=== PATIENT | male | born 1950 | race Caucasian/White ===

== ENCOUNTER → 2016-10-01 | Outpatient (CLI) | payer OTHER ==
[~2016-10-01] MED LIST: ALPR-411 PO; ASPI81TA28 PO; CHOL20005 PO; CITA20TA4; CURAMED PO; FESO8TAB PO; IBUP-1277 PO; LEVO75CA2 PO; MELA3TAB PO; PERI4TAB PO; REGADENOSON 0.4 MG/5 ML SYR ONE; SALI1SPR3 NAE; TADA20TA PO; TRAZ50TA35 PO; [UNRECOGNIZED DRUG - OTHER] PO
--- NOTE | 2016-10-01 18:23 | MYOCARDIAL PERFUSION SCAN ---
ORDERING PHYSICIAN: Dr. Harrison. PCP: Dr. Flores. TIME OF DICTATION: 17:20. PROCEDURE: 1. Myocardial perfusion study performed in multiple views/images. 2. Lexiscan pharmacologic stress test. INDICATIONS: 1. CAD. 2. Chest pain. 3. Left bundle branch block. CONSENT: Informed consent was obtained prior to procedure. ELECTROCARDIOGRAM AND VITALS: Baseline ECG demonstrated sinus rhythm with first degree AV block at 65 BPM. Left bundle branch block. Lexiscan ECG demonstrated no significant ST changes. No arrhythmia. No significant pauses. No chest pain reported. Maximum heart rate was 94 beats per minute representing 60% of the maximum predicted heart rate. Resting blood pressure was 119/76 mmHg. Maximum blood pressure was 137/85 mmHg. PROCEDURAL DETAILS: For the stress portion of the study, Lexiscan 0.4 mg was intravenously administered over 10-15 seconds followed by saline flush. This was followed by 32.8 mCi of technetium-99m Cardiolite at 9:35 a.m. on 10/01/2016. Thirty minutes following the injection, imaging of the heart was performed in multiple projections. For the rest portion of the study 11.2 mCi of technetium-99m Cardiolite was injected intravenously at 7:35 a.m. on the same day. One hour following the injection, imaging of heart was performed in the same projections. FINDINGS: Rotating raw imaging demonstrated normal heart size. There was no significant motion artifact. There was no significant lung uptake. Myocardial perfusion appeared normal without significant fixed or reversible defects to suggest infarct or ischemic changes. Ejection fraction was 52%. The septum did appear to be hypokinetic. Otherwise, wall motion appeared normal. There was no significant transient ischemic dilation. IMPRESSION: 1. Normal myocardial perfusion without significant ischemic changes. 2. Low normal left ventricular systolic function with an ejection fraction of 52%. 3. Wall motion demonstrated hypokinesis of the septum. 4. No chest pain reported. 5. Indeterminate Lexiscan ECG due to baseline left bundle branch block.
== END | disposition home or self-care (01) ==
LOC: C.NUCL 06:58
PROVIDERS: ATTEND Internal Medicine Cardiovascular Disease
DX: I25.10 Atherosclerotic heart disease of native coronary artery without angina pectoris (principal); I44.7 Left bundle-branch block, unspecified; R07.9 Chest pain, unspecified

== ENCOUNTER 2019-03-24 09:12 | Observation (INO) ==
[2019-03-24 09:55] LABS: Basophils # (auto) 0.01 K/uL (0-0.2); Basophils % (auto) 0.2 %; Eosinophils # (auto) 0.07 K/uL (0-0.5); Eosinophils % (auto) 1.3 %; Hematocrit (blood only) 41.5 % (42-52); Hemoglobin 14.4 g/dL (14.0-18.0); Immature Granulocytes # (auto) 0.02 K/uL (0.00-0.02); Immature Granulocytes % (auto) 0.4 %; Lymphocytes # (auto) 1.68 K/uL (1.2-3.4); Lymphocytes % (auto) 32.1 %; Mean Corpuscular Hgb Conc 34.7 g/dL (32-36); Mean Corpuscular Volume 89.4 fL (80-100); Mean Platelet Volume 9.4 fL (7.4-10.4); Monocytes # (auto) 0.48 K/uL (0.11-0.59); Monocytes % (auto) 9.2 %; Neutrophils # (auto) 2.97 K/uL (1.4-6.5); Neutrophils % (auto) 56.8 %; Platelet Count 162 K/uL (130-400); RDW Coefficient of Variation 13.1 % (11.5-14.5); RDW Standard Deviation 42.7 fL (36.4-46.3); Red Blood Count 4.64 M/uL (4.7-6.1); White Blood Count 5.23 K/uL (4.8-10.8)
--- NOTE | 2019-03-24 10:00 | XRay Report ---
XR chest 1V portable CLINICAL HISTORY: Atypical chest pain COMPARISON STUDY: 08/02/2016 FINDINGS: The heart remains mildly enlarged. There is no failure. There is no lobar consolidation. Th ere are no pleural effusions. There are minor basilar atelectatic changes.[ IMPRESSION: No active disease in the chest. Electronically signed by: Karson Belle M.D. 03/24/2019 9:59 AM
[2019-03-24 10:05] LABS: Partial Thromboplastin Ratio 0.9; Partial Thromboplastin Time 24.8 Seconds (21.0-31.0); Prothrombin Time 10.6 Seconds (9.0-12.0)
[2019-03-24 10:06] LABS: Albumin Level 3.8 gm/dl (3.4-5.0); BUN Creatinine Ratio 21.1 (10-20); Calcium 9.4 mg/dl (8.5-10.1); Creatinine Clr Calc Pharmacy 76.4 ml/min; Est GFR (African American) 86.7; Est GFR (Non-African American) 74.8; Potassium 4.3 mmol/L (3.5-5.1)
[2019-03-24 10:09] LABS: Albumin Globulin Ratio 1.1 (0.9-2); Bilirubin,Total 0.5 mg/dl (0.2-1); Globulin 3.5 gm/dl (2.5-4.0); Total Protein 7.3 gm/dl (6.4-8.2)
--- NOTE | 2019-03-24 11:17 | History & Physical Report ---
Date of Service March 24, 2019 Assessment & Plan (1) Exertional chest pain: - Admit to tele for observation for r/o - Trend cardiac biomarkers, initial set was negative - EKG reviewed as above - Check 2 D echo - If negative enzymes can consider a stress test tomorrow morning. - PT/OT consulted - Consult cardiology, Dr. Harrison, follows with him as an outpatient - Lipid panel, A1c with a.m. labs as the patient has already eaten breakfast. - Check x-ray of left shoulder to rule out musculoskeletal issue, patient reports he does take ibuprofen 200 mg QID routinely at home for muscular pain. May consider MRI after xray pending findings. (2) CAD (coronary artery disease): -Continue on full dose aspirin every morning, continue peindopril erbumine 4 mg daily, pravastatin 20 HS (3) Left bundle branch block (LBBB): - appears to be chronic on EKG, as reviewed (4) Hyperlipidemia: - Statin therapy as above (5) Hypothyroidism: -Continue levothyroxine 75 mcg daily (6) H/O Anahi thyroiditis: - hx of such (7) History of prostate surgery: (8) Chronic interstitial cystitis: - Patient reports that this is a chronic issue ongoing for several months, he has recently seen Dr. Nieves as an outpatient for superior hypogastric pl exus block which he reports did not improve symptoms. - Will check UA to r/o infectious process (9) DVT prophylaxis: - teds, aspirin 325 mg daily, ambulatory History of Present Illness Primary Care Provider: Cullen Flores This is a 68-year-old male with past medical history of CAD, HTN, HLD, chronic LBBB, obesity with BMI of 30.6, BPH, interstitial cystitis, hypothyroidism, Anahi's thyroiditis, who presents to the ER with chest pain times last 3 weeks. Patient notes that this has been waxing and waning, he does not specifically note if this is worse on exertion. He feels this also in his left shoulder but does not radiate to any other location. Patient rates his pain as mild currently. Patient denies any history of drinking alcohol routinely or smoking. He does exercise routinely, 3-4 times per week lifts weights, and leads an active lifestyle. The patient underwent cardiac cath at [facility] in 2005 where nonobstructive CAD was found, it sounds like there was no PCI or stents placed during that timeframe. He routinely follows with Dr. Harrison with cardiology as an outpatient. Patient takes all of his medications routinely including a baby aspirin daily. Pertinent Family Hx: Brother, Jessica, age 67, recently diagnosed with CAD and underwent open heart surgery 1 month ago Father, at age 69 from CAD and [place] after a hip fracture repair Mother, at age 67 from CHF and complications Will admit to telemetry for observation initial troponin is negative, EKG is negative except for chronic LBBB. Labs are otherwise WNL. Allergies Allergy/AdvReac Type Severity Reaction Status Date / Time tamsulosin Allergy Intermediate WEAKNESS Verified 03/24/19 10:47 strawberry Allergy Unknown STRAWBERRIES Verified 03/24/19 10:47 GIVE RASH cephalexin AdvReac Intermediate MUSCLE Verified 03/24/19 10:47 WEAKNESS ketamine AdvReac Unknown BURNING ON Verified 03/24/19 10:47 URINATION trospium AdvReac Unknown MUSCLE Verified 03/24/19 10:47 WEAKNESS Home Medications Home Medications Medication Instructions Recorded Confirmed Type ascorbic acid (vitamin C) 250 mg 250 mg PO QAM 10/30/18 03/24/19 History tablet aspirin 81 mg tablet,delayed 81 mg PO HS 10/30/18 03/24/19 History release citalopram 20 mg tablet 20 mg PO QAM 10/30/18 03/24/19 History cyclobenzaprine 10 mg tablet 10 mg PO HS PRN 10/30/18 03/24/19 History ibuprofen 200 mg tablet 200 mg PO QID PRN 10/30/18 03/24/19 History levothyroxine 75 mcg capsule 75 mcg PO DAILYBB 10/30/18 03/24/19 History lorazepam 0.5 mg tablet 0.5 mg PO TID PRN tab 10/30/18 03/24/19 History melatonin 3 mg tablet 3 mg PO HS PRN 10/30/18 03/24/19 History perindopril erbumine 4 mg tablet 4 mg PO QAM 10/30/18 03/24/19 History tadalafil 20 mg tablet 20 mg PO DAILY PRN 10/30/18 03/24/19 History trazodone 50 mg tablet 50 mg PO HS 10/30/18 03/24/19 History pravastatin 20 mg PO HS 03/24/19 03/24/19 History vitamin D3-vitamin K2 (MK4) 1 tab PO QAM 03/24/19 03/24/19 History Past Med/Surg History Medical History Hypercholesterolemia (Chronic) Left bundle branch block (LBBB) (Chronic) Hyperlipidemia (Chronic) H/O Anahi thyroiditis (Chronic) CAD (coronary artery disease) (Chronic) Hypothyroidism (Chronic) Chronic interstitial cystitis (Chronic 01/30/13) Surgical History History of prostate surgery (Chronic) H/O Achilles tendon repair (Chronic) History of herniorrhaphy (Chronic) S/P TKR (total knee replacement) (Chronic) Family History Other Coronary heart disease Heart disease Hypertension Social History Preferred Language: Egyptian Communication Ability: Effective Celebrity Manager Required: No Beliefs That Will Affect Care: None Current Living Situation: Spouse Other Information That Helps Us Care for You: No Feels Safe at Home: Yes Safety Concerns: Feels Safe At This Time Smoking Status: Never smoker Do You Dip or Chew Tobacco: No ; Second Hand Exposure: No ; Tobacco Cessation Education Requested by Patient: No Hx Alcohol Use: Yes Alcohol type: wine Hx Substance Use: No Review of Systems Review of Systems: Constitutional: No fever, sweats or chills Eyes: No diplopia, no worsening or blurred vision ENT: normal hearing, no trouble swallowing Respiratory: No cough, sputum, dyspnea at rest or on exertion Cardiovascular: + mild chest pain, no tightness or palpitations Abdomen: No pain, nausea, vomiting, diarrhea or constipation Musculoskeletal: + left shoulder pain which is mild, does not radiate, otherwise No joint pain, calf pain, swelling Neurologic: No weakness, numbness/tingling, or balance problems Psychiatric: No anxiety or depression Skin: No rash or itch Physical Exam Physical Exam: General: awake, alert, no apparent distress Head: Normocephalic, atraumatic ENT: PERRL, EOMI, no pharyngeal exudate, mucous membranes moist Chest: Clear to auscultation, on room air, no adventitious breath sounds Cardiac: Regular rate and rhythm, no murmur, no JVD, normal peripheral pulses, good capillary refill Abdominal: NABS x 4 quadrants, soft, nontender to palpation, no rebound, guarding or tenderness Extremities: Normal inspection, no peripheral edema or erythema, calfs nontender to palpation Psych: Normal mood and affect Neuro: AAO x 3, strength intact bilaterally and related 5/5, no motor deficits, speech is clear, no peripheral sensory deficits Results & Data Vital Signs (Past 12 Hours) Vital Signs Temp Pulse Resp BP Pulse Ox 03/24/19 10:30 53 L 18 95 03/24/19 10:28 53 L 18 95 03/24/19 10:10 55 L 16 98 03/24/19 10:00 56 L 14 129/78 94 03/24/19 09:50 56 L 18 97 03/24/19 09:43 67 95 03/24/19 09:40 60 16 97 03/24/19 09:34 56 L 14 96 03/24/19 09:32 59 L 12 122/73 96 03/24/19 09:14 36.7 C 60 18 135/80 94 Diagnostic Findings XR chest 1V portable CLINICAL HISTORY: Atypical chest pain COMPARISON STUDY: 08/02/2016 FINDINGS: The heart remains mildly enlarged. There is no failure. There is no lobar consolidation. There are no pleural effusions. There are minor basilar ate lectatic changes.[ IMPRESSION: No active disease in the chest. ECG Additional Comments: 24-MAR-2019 09:15:29 [facility]-EDSTAT ROUTINE RETRIEVAL Sinus bradycardia with 1st degree A-V block Left bundle branch block Abnormal ECG When compared with ECG of 02-AUG-2016 21:42, No significant change was found 25mm/s 10mm/mV 150Hz 9.0.8 12SL 241 ASHLYN: 11 Unconfirmed Vent. rate 59 BPM IN interval 232 ms QRS duration 166 ms QT/QTc 464/459 ms P-R-T axes 49 -10 56 Code Status & VTE Plan Code Status Full Code-discussed with the patient and his at bedside. Supervising Physician Co-Signing Physician Notes I have seen the patient with Natalie Cat and agree with exam , assessment and plan. PG Care Time/CCT Total # of Minutes Spent Total Time Spent with Patient: Total time spent is greater than 50% in coordination of care (as documented) at patient's floor/unit and/or counseling patient: (1) CAD (coronary artery disease) Associated angina: angina presence unspecified Coronary Disease-Associated Artery/Lesion type: unspecified vessel or lesion type [place] vs. transplanted heart: [place] heart Qualified Code(s): I25.10 - Atherosclerotic heart disease of [place] coronary artery without angina pectoris
[2019-03-24] MEDS ORDERED: ACETAMINOPHEN 325 MG TAB PO PRN (13:24)
[2019-03-24] MEDS ORDERED: ONDANSETRON INJ 2 MG/ML 2 ML VIAL IV PRN (13:24)
[2019-03-24] MEDS ORDERED: CYCLOBENZAPRINE HCL 10 MG TAB PO PRN (13:24)
[2019-03-24 13:58] LABS: Appearance Urine Clear (Clear); Bilirubin Urine Negative (Negative); Blood Urine Negative (Negative); Color Urine Yellow; Glucose Urine UA Negative (Negative); Ketones Urine Negative (Negative); Leukocyte Esterase Urine Negative (Negative); Nitrite Urine Negative (Negative); Protein Urine Negative (Negative); Urobilinogen Urine Negative (Negative)
[2019-03-24] MEDS ORDERED: PNEUMOCOCCAL POLYSACCHARIDES 25 MCG/0.5 ML VIAL/SYR IM ONE (14:00)
[2019-03-24] MEDS ORDERED: PNEUMOCOCCAL ADMINISTRATION CHARGE ONE (14:00)
--- NOTE | 2019-03-24 14:42 | Emergency Department Note ---
Entered by Marla Laurent acting as a scribe for Kishor Shepard MD History of Present Illness General Chief complaint: Chest Pain Stated complaint: CHEST PAIN, SHOULDER PAIN Source: patient History of Present Illness Provider complaint: Chest pain Onset (ago): week(s) 3 Location: chest Radiation: other (shoulder and arm) Pain Consistency: + intermittent Maximum Pain Intensity: 3 Quality: + constant Associated symptoms: + chest pain (left upper ) and + other (Positive: shoulder pain, arm pain. Negative: abdominal pain, leg swelling, leg pain, lightheadedness. ); no cough, no fever/chills and no nausea/vomiting The patient is a 68 year old male with past medical history of LBBB, CAD, chronic interstitial cystitis, who presents to the ED with complaints of intermittent left upper chest pain that started 3 weeks ago. The patient reports his pain radiates to his shoulder and armpit. He notes he is sore. The patient additionally notes he walked on the stair stepper for 30 minutes yesterday and had chest discomfort. He reports his pain is worsened with exertion. The patient notes he has history of bundle block and had catheterization in 2007. He states they found at least one 60% artery blockage. The patient denies shortness of breath, diaphoresis, nausea, vomiting, abdominal pain, leg swelling, leg pain, fever, cough, or lightheadedness. Home Medications Home Medications Medication Instructions Recorded Confirmed Type ascorbic acid (vitamin C) 250 mg 250 mg PO QAM 10/30/18 03/24/19 History tablet aspirin 81 mg tablet,delayed 81 mg PO HS 10/30/18 03/24/19 History release citalopram 20 mg tablet 20 mg PO QAM 10/30/18 03/24/19 History cyclobenzaprine 10 mg tablet 10 mg PO HS PRN 10/30/18 03/24/19 History ibuprofen 200 mg tablet 200 mg PO QID PRN 10/30/18 03/24/19 History levothyroxine 75 mcg capsule 75 mcg PO DAILYBB 10/30/18 03/24/19 History lorazepam 0.5 mg tablet 0.5 mg PO TID PRN tab 10/30/18 03/24/19 History melatonin 3 mg tablet 3 mg PO HS PRN 10/30/18 03/24/19 History perindopril erbumine 4 mg tablet 4 mg PO QAM 10/30/18 03/24/19 History tadalafil 20 mg tablet 20 mg PO DAILY PRN 10/30/18 03/24/19 History trazodone 50 mg tablet 50 mg PO HS 10/30/18 03/24/19 History pravastatin 20 mg PO HS 03/24/19 03/24/19 History vitamin D3-vitamin K2 (MK4) 1 tab PO QAM 03/24/19 03/24/19 History Allergies Allergy/AdvReac Type Severity Reaction Status Date / Time tamsulosin Allergy Intermediate WEAKNESS Verified 03/24/19 10:47 strawberry Allergy Unknown STRAWBERRIES Verified 03/24/19 10:47 GIVE RASH cephalexin AdvReac Intermediate MUSCLE Verified 03/24/19 10:47 WEAKNESS ketamine AdvReac Unknown BURNING ON Verified 03/24/19 10:47 URINATION trospium AdvReac Unknown MUSCLE Verified 03/24/19 10:47 WEAKNESS Past Med/Surg History Medical History Hypercholesterolemia (Chronic) Left bundle branch block (LBBB) (Chronic) Hyperlipidemia (Chronic) H/O Anahi thyroiditis (Chronic) CAD (coronary artery disease) (Chronic) Hypothyroidism (Chronic) Chronic interstitial cystitis (Chronic 01/30/13) Surgical History History of prostate surgery (Chronic) H/O Achilles tendon repair (Chronic) History of herniorrhaphy (Chronic) S/P TKR (total knee replacement) (Chronic) Family History Other Coronary heart disease Heart disease Hypertension Social History Preferred Language: Hungarian Communication Ability: Effective Cage Operator Required: No Beliefs That Will Affect Care: None Current Living Situation: Spouse Other Information That Helps Us Care for You: No Feels Safe at Home: Yes Safety Concerns: Feels Safe At This Time Smoking Status: Never smoker Do You Dip or Chew Tobacco: No ; Second Hand Exposure: No ; Tobacco Cessation Education Requested by Patient: No Hx Alcohol Use: Yes Alcohol type: wine Hx Substance Use: No Review of Systems See HPI for pertinent positives & negatives. and A total of 10 systems reviewed and were otherwise negative Physical Exam Vital Signs Vital Signs - 24 hr 03/24/19 09:14 03/24/19 09:32 03/24/19 09:34 Temperature 36.7 C Temperature Source Oral Sepsis Recent Fever Within 48 Hours No Sepsis New/Unexplained Change in Mental Status No Sepsis Action Taken by Nursing No Action Required Pulse Rate 60 59 L 56 L Pulse Rate from SpO2 Sensor 59 L 57 L Pulse Rhythm Respiratory Rate 18 12 14 Respiratory Effort / Characteristics Non-Labored Spontaneous Respiratory Depth Normal Blood Pressure 135/80 122/73 Blood Pressure Mean 98 89 Blood Pressure Position Sitting Pulse Oximetry 94 96 96 Oxygen Delivery Method Room Air 03/24/19 09:40 03/24/19 09:43 03/24/19 09:50 Temperature Temperature Source Sepsis Recent Fever Within 48 Hours Sepsis New/Unexplained Change in Mental Status Sepsis Action Taken by Nursing Pulse Rate 60 67 56 L Pulse Rate from SpO2 Sensor 60 57 L Pulse Rhythm Regular Respiratory Rate 16 18 Respiratory Effort / Characteristics Respiratory Depth Blood Pressure Blood Pressure Mean Blood Pressure Position Pulse Oximetry 97 95 97 Oxygen Delivery Method Room Air 03/24/19 10:00 03/24/19 10:10 03/24/19 10:28 Temperature Temperature Source Sepsis Recent Fever Within 48 Hours Sepsis New/Unexplained Change in Mental Status Sepsis Action Taken by Nursing Pulse Rate 56 L 55 L 53 L Pulse Rate from SpO2 Sensor 55 L 56 L 54 L Pulse Rhythm Respiratory Rate 14 16 18 Respiratory Effort / Characteristics Respiratory Depth Blood Pressure 129/78 Blood Pressure Mean 95 Blood Pressure Position Pulse Oximetry 94 98 95 Oxygen Delivery Method 03/24/19 10:30 03/24/19 10:32 03/24/19 10:40 Temperature Temperature Source Sepsis Recent Fever Within 48 Hours Sepsis New/Unexplained Change in Mental Status Sepsis Action Taken by Nursing Pulse Rate 53 L 55 L 56 L Pulse Rate from SpO2 Sensor 53 L 56 L 55 L Pulse Rhythm Respiratory Rate 18 14 14 Respiratory Effort / Characteristics Respiratory Depth Blood Pressure Blood Pressure Mean 90 Blood Pressure Position Pulse Oximetry 95 96 95 Oxygen Delivery Method 03/24/19 10:50 03/24/19 11:00 03/24/19 11:18 Temperature Temperature Source Sepsis Recent Fever Within 48 Hours Sepsis New/Unexplained Change in Mental Status Sepsis Action Taken by Nursing Pulse Rate 58 L 54 L 59 L Pulse Rate from SpO2 Sensor 58 L 54 L Pulse Rhythm Respiratory Rate 16 15 9 L Respiratory Effort / Characteristics Respiratory Depth Blood Pressure 131/77 Blood Pressure Mean 95 Blood Pressure Position Pulse Oximetry 96 96 Oxygen Delivery Method 03/24/19 11:20 Temperature Temperature Source Sepsis Recent Fever Within 48 Hours Sepsis New/Unexplained Change in Mental Status Sepsis Action Taken by Nursing Pulse Rate 52 L Pulse Rate from SpO2 Sensor 51 L Pulse Rhythm Respiratory Rate 20 Respiratory Effort / Characteristics Respiratory Depth Blood Pressure Blood Pressure Mean Blood Pressure Position Pulse Oximetry 97 Oxygen Delivery Method Constitutional: Vital signs reviewed. Eyes: Pupils are equal round reactive to light. Conjunctiva are noninjected. ENT: Pharynx is clear without erythema or exudate. Mucous membranes are moist. Neck supple without meningeal signs. Respiratory: Clear to auscultation bilaterally. Breath sounds are equal bilaterally. Cardiovascular: Regular rate and rhythm. No rubs or gallops. GI: Soft, nondistended and nontender. Bowel sounds are present. Musculoskeletal: No peripheral edema. No lower extremity tenderness. Integumentary: No cyanosis. Neurological: The patient is awake and alert. No focal deficits. Psychiatric: Normal affect. Course 0938: The patient was evaluated in room B4B. A complete history and physical exam was performed. 1106: I checked on the patient. His chest pain has now resolved. I recommended hospitalization. 1112: I discussed the patient's case with Dr. Leal, [facility] Hospitalist. She will evaluate the patient for further management. Consultations Consultation #1: I discussed the patient's case with Dr. Leal, [facility] Hospitalist. She will evaluate the patient for further management. Time: 11:12 Administered Medications Medical Decision Making Differential Diagnosis Differential Diagnosis: Unstable angina, RI, pleurisy, pneumonia, GERD Medical Records Attestation: I reviewed the patient's medical records. (The patient was seen by pain management in January for intersitital cystitis ) Home Medications Current Medication List: was personally reviewed by me Laboratory Data Attestation: I reviewed the patient's lab results. Result diagrams: 03/24/19 09:33 03/24/19 09:33 Lab Results 03/24/19 03/24/19 03/24/19 Range/Units 09:33 09:33 09:33 WBC 5.23 (4.8-10.8) K/uL RBC 4.64 L (4.7-6.1) M/uL Hgb 14.4 (14.0-18.0) g/dL Hct 41.5 L (42-52) % MCV 89.4 (80-100) fL MCH 31.0 (25-34) pg MCHC 34.7 (32-36) g/dL RDW Std Deviation 42.7 (36.4-46.3) fL RDW Coeff of Maria Esther 13.1 (11.5-14.5) % Plt Count 162 (130-400) K/uL MPV 9.4 (7.4-10.4) fL Immature Gran % (Auto) 0.4 % Neut % (Auto) 56.8 % Lymph % (Auto) 32.1 % [place] % (Auto) 9.2 % Eos % (Auto) 1.3 % Baso % (Auto) 0.2 % Immature Gran # (Auto) 0.02 (0.00-0.02) K/uL Neut # (Auto) 2.97 (1.4-6.5) K/uL Lymph # (Auto) 1.68 (1.2-3.4) K/uL [place] # (Auto) 0.48 (0.11-0.59) K/uL Eos # (Auto) 0.07 (0-0.5) K/uL Baso # (Auto) 0.01 (0-0.2) K/uL PT 10.6 (9.0-12.0) Seconds INR 1.0 (0.9-1.1) APTT 24.8 (21.0-31.0) Seconds PTT Ratio 0.9 Sodium 143 (136-145) mmol/L Potassium 4.3 (3.5-5.1) mmol/L Chloride 110 H (98-107) mmol/L Carbon Dioxide 26 (21-32) mmol/L Anion Gap 6.0 (3-11) BUN 22 H (7-18) mg/dl Creatinine 1.03 (0.6-1.4) mg/dl Est Cr Clr Drug Dosing 76.4 ml/min Est GFR ( Amer) 86.7 Est GFR (Non-Af Amer) 74.8 BUN/Creatinine Ratio 21.1 H (10-20) Glucose 98 (70-99) mg/dl Calcium 9.4 (8.5-10.1) mg/dl Total Bilirubin 0.5 (0.2-1) mg/dl AST 20 (15-37) U/L ALT 33 (12-78) U/L Alkaline Phosphatase 54 (45-117) U/L POC Troponin I (0-0.045) ng/ml Total Protein 7.3 (6.4-8.2) gm/dl Albumin 3.8 (3.4-5.0) gm/dl Globulin 3.5 (2.5-4.0) gm/dl Albumin/Globulin Ratio 1.1 (0.9-2) Lipase 157 (73-393) U/L 03/24/19 Range/Units 09:48 WBC (4.8-10.8) K/uL RBC (4.7-6.1) M/uL Hgb (14.0-18.0) g/dL Hct (42-52) % MCV (80-100) fL MCH (25-34) pg MCHC (32-36) g/dL RDW Std Deviation (36.4-46.3) fL RDW Coeff of Maria Esther (11.5-14.5) % Plt Count (130-400) K/uL MPV (7.4-10.4) fL Immature Gran % (Auto) % Neut % (Auto) % Lymph % (Auto) % [place] % (Auto) % Eos % (Auto) % Baso % (Auto) % Immature Gran # (Auto) (0.00-0.02) K/uL Neut # (Auto) (1.4-6.5) K/uL Lymph # (Auto) (1.2-3.4) K/uL [place] # (Auto) (0.11-0.59) K/uL Eos # (Auto) (0-0.5) K/uL Baso # (Auto) (0-0.2) K/uL PT (9.0-12.0) Seconds INR (0.9-1.1) APTT (21.0-31.0) Seconds PTT Ratio Sodium (136-145) mmol/L Potassium (3.5-5.1) mmol/L Chloride (98-107) mmol/L Carbon Dioxide (21-32) mmol/L Anion Gap (3-11) BUN (7-18) mg/dl Creatinine (0.6-1.4) mg/dl Est Cr Clr Drug Dosing ml/min Est GFR ( Amer) Est GFR (Non-Af Amer) BUN/Creatinine Ratio (10-20) Glucose (70-99) mg/dl Calcium (8.5-10.1) mg/dl Total Bilirubin (0.2-1) mg/dl AST (15-37) U/L ALT (12-78) U/L Alkaline Phosphatase (45-117) U/L POC Troponin I < 0.03 (0-0.045) ng/ml Total Protein (6.4-8.2) gm/dl Albumin (3.4-5.0) gm/dl Globulin (2.5-4.0) gm/dl Albumin/Globulin Ratio (0.9-2) Lipase (73-393) U/L Imaging Data Radiologist's Impression: Radiology results as stated below per my review and the radiologist's interpretation: XR chest 1V portable CLINICAL HISTORY: Atypical chest pain COMPARISON STUDY: 08/02/2016 FINDINGS: The heart remains mildly enlarged. There is no failure. There is no lobar consolidation. There are no pleural effusions. There are minor basilar atelectatic changes.[ IMPRESSION: No active disease in the chest. Electronically signed by: Karson Belle M.D. 03/24/2019 9:59 AM ECG Data Attestation: I personally reviewed and interpreted this ECG as follows: Indication: chest pain Rate (beats per minute): 59 Rhythm: sinus bradycardia Findings: + 1st degree AV block and + LBBB; no PVC MDM Narrative I did evaluate the patient as noted above. Patient is presenting with exertional chest pain intermittently for the past 3 weeks. He does have a prior history of cardiac catheterization which showed at least one 60% blockage in his coronary vessels according to his . He currently does not have any chest discomfort. IV access was established. The patient was placed on a continuous coach. I did order and personally review the patient's 12-lead EKG as described above. He has an old left bundle branch block and no acute ischemic changes. I did order and personally reviewed the images of the patient's chest x-ray as described above. Chest x-ray is unremarkable. I did order and review the patient's blood work as noted in the electronic medical record. Troponin is negative. Other labs are unremarkable. I did reassess patient. I did discuss the test results with him. I did recommend hospitalization for further care and evaluation. I did discuss the case with the hospitalist and keycase assembler. Impression & Plan Exertional chest pain, CAD (coronary artery disease), Left bundle branch block (LBBB), First degree atrioventricular block Discharge Plan Visit Data *Final* Discharge Date/Time: 03/24/19 12:31 Chief Complaint: Chest Pain Stated Complaint: CHEST PAIN, SHOULDER PAIN ED Provider: Kishor Shepard Discharge Problem: Exertional chest pain, CAD (coronary artery disease), Left bundle branch block (LBBB), First degree atrioventricular block Patient Disposition: Admitted As Inpatient Discharge Instructions Interventions: ED Discharge Assessment Last Done: 03/24/19 12:31 The parisibe's documentation has been prepared under my direction and personally reviewed by me in its entirety. I confirm that the note above accurately reflects all work, treatment, procedures, and medical decision making performed by me.
--- NOTE | 2019-03-24 15:01 | XRay Report ---
LEFT SHOULDER 3 VIEWS HISTORY: Left shoulder pain, repetative injury with weights COMPARISON: None. FINDINGS: There is no fracture or dislocation. Soft tissues are unremarkable. Left clavicle is intact . The heart is enlarged. Mild central pulmonary vascular congestion. Moderate AC joint arthrosis. IMPRESSION: 1. No fracture or dislocation within the left shoulder. 2. Moderate AC joint arthrosis. 3. Cardiomegaly with mild pulmonary vascular congestion. Electronically signed by: Collin Moreno M.D. 03/24/2019 2:59 PM
[2019-03-24] MEDS: LORazepam 0.5 MG TAB PO PRN ×2 (15:34→22:04)
--- NOTE | 2019-03-24 17:10 | Cardiology Consultation ---
Date of Consultation March 24, 2019 Assessment & Plan (1) Exertional chest pain: Chest pain has some atypical component such as left lateral location, possible reproducible component, and also has not been occurring with all strenuous activities. Noninvasive ischemic evaluation recommended at this time. Serial troponin levels. Thus far, no objective findings to suggest myocardial infarction. Myocardial perfusion study ordered. (2) CAD (coronary artery disease): Has reported mild nonobstructive CAD. Continue aspirin 81 mg daily. Continue statin therapy. Noninvasive ischemic evaluation as above. (3) Hyperlipidemia: He has not been able to tolerate Lipitor, Crestor, and Zetia in the past due to elevated transaminase levels. He is tolerating pravastatin. Continue current medication. (4) Left bundle branch block (LBBB): Chronic. Because of left bundle-branch block, myocardial perfusion study was ordered as the noninvasive ischemic evaluation modality. Disposition: Cardiology will continue to follow. 45 minutes spent, with greater than 50% of that time spent counseling patient and coordinating care. History of Present Illness Reason for Consultation: chest pain Requesting Physician: Aaron Cat Attending Physician: Bubba Leal MD History of Present Illness Mr. Earl is a very pleasant 68-year-old gentleman with history significant for nonobstructive CAD, dyslipidemia, and left bundle-branch block. He had a cardiac catheterization in 2005 following an abnormal stress test in [place]. He was told that no intervention was necessary at that time. He was being followed on an annual basis for nonobstructive CAD. He also has chronic left bundle-branch block. He has had the following studies/procedures: 1. Cardiac catheterization 2005: Records have been unavailable upon request. 2. Nuclear stress 10/01/2016: Negative for ischemia. EF 52%. 3. Echo 09/03/2017: Top-normal LV size with low-normal systolic function. EF 50-55%. No definite wall motion abnormalities. Septal motion consistent with bundle-branch block. Mild LVH. Type 2 diastolic dysfunction, pseudo normalized pattern. No significant valvular abnormalities. For the past 3 weeks or so he has had intermittent left-sided chest pain. The left sided chest pain is lateral left chest pain, extending into the axilla at times. He describes it as a pressure. It typically occurs with exertion but on rare occasion has occurred at rest while sitting or laying supine. Yesterday it occurred while using a stepper, 15 minutes into his usual exercise. He was able to complete his 30 minutes and it resolved quickly with rest. There was no associated shortness of breath. He does have left shoulder pain at times but it is difficult to know if the left shoulder pain is associated with the chest pressure. There is no other radiation of the pain. There is no other associated symptoms. He has been more fatigued recently over the past few weeks. He has been able to exert himself more vigorously at times as well without experiencing this chest discomfort, such as using a push mower. He denies syncope, near-syncope, palpitations, edema, melena, hematochezia, hematuria, or other bleeding. He continues to exercise 30-40 minutes per day, 5 days per week. He is currently chest pain-free. Review of systems: As above. Review of systems otherwise negative/unremarkable. Social history: Denies tobacco, alcohol, or drug abuse. He is and lives with his . Three children. His son is allergy and immunology fellow, and his son is to a back joiner in [place]. Another son lives in [place], working for [employer]. He has a daughter who is a teacher in [place]. He has grandchildren. 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 He is unaccompanied. Family history: Father had [place] following hip replacement in his 60s. Mother had CAD diagnosed in her upper 60s. Brother had CABG at the age of 76. Allergies Allergy/AdvReac Type Severity Reaction Status Date / Time tamsulosin Allergy Intermediate WEAKNESS Verified 03/24/19 10:47 strawberry Allergy Unknown STRAWBERRIES Verified 03/24/19 10:47 GIVE RASH cephalexin AdvReac Intermediate MUSCLE Verified 03/24/19 10:47 WEAKNESS ketamine AdvReac Unknown BURNING ON Verified 03/24/19 10:47 URINATION trospium AdvReac Unknown MUSCLE Verified 03/24/19 10:47 WEAKNESS Home Medications Home Medications Medication Instructions Recorded Confirmed Type ascorbic acid (vitamin C) 250 mg 250 mg PO QAM 10/30/18 03/24/19 History tablet aspirin 81 mg tablet,delayed 81 mg PO HS 10/30/18 03/24/19 History release citalopram 20 mg tablet 20 mg PO QAM 10/30/18 03/24/19 History cyclobenzaprine 10 mg tablet 10 mg PO HS PRN 10/30/18 03/24/19 History ibuprofen 200 mg tablet 200 mg PO QID PRN 10/30/18 03/24/19 History levothyroxine 75 mcg capsule 75 mcg PO DAILYBB 10/30/18 03/24/19 History lorazepam 0.5 mg tablet 0.5 mg PO TID PRN tab 10/30/18 03/24/19 History melatonin 3 mg tablet 3 mg PO HS PRN 10/30/18 03/24/19 History perindopril erbumine 4 mg tablet 4 mg PO QAM 10/30/18 03/24/19 History tadalafil 20 mg tablet 20 mg PO DAILY PRN 10/30/18 03/24/19 History trazodone 50 mg tablet 50 mg PO HS 10/30/18 03/24/19 History pravastatin 20 mg PO HS 03/24/19 03/24/19 History vitamin D3-vitamin K2 (MK4) 1 tab PO QAM 03/24/19 03/24/19 History Patient History Medical History Hypercholesterolemia (Chronic) Left bundle branch block (LBBB) (Chronic) Hyperlipidemia (Chronic) H/O [place] thyroiditis (Chronic) CAD (coronary artery disease) (Chronic) Hypothyroidism (Chronic) Chronic interstitial cystitis (Chronic 01/30/13) Surgical History History of prostate surgery (Chronic) H/O Achilles tendon repair (Chronic) History of herniorrhaphy (Chronic) S/P TKR (total knee replacement) (Chronic) Family History Other Coronary heart disease Heart disease Hypertension Social History Preferred Language: Armenian Communication Ability: Effective Lining 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 Alert and oriented. HEENT: Anicteric sclera. Neck: No JVD. No bruits. Normal carotid upstrokes bilaterally. Cardiac: PMI was nondisplaced. No ventricular heave. Regular. Normal S1-S2. No murmurs, rubs, or gallops. Pulmonary: Clear to auscultation bilaterally without wheezes, rales, or rhonchi. Abdomen: Soft, nontender, nondistended, with normoactive bowel sounds. No bruits noted. Extremities: 2+ radial pulses bilaterally. 2+ posterior tibialis pulses bilaterally. No edema or cyanosis. Psychiatric: Affect appears appropriate. Chest: Mild tenderness to palpation along the left lateral chest wall, similar to his chest pain noted above. Results & Data Vital Signs (Past 12 Hours) Vital Signs Temp Pulse Pulse Resp BP BP Pulse Ox 03/24/19 15:58 36.5 C 61 19 111/70 94 03/24/19 13:37 69 03/24/19 13:17 36.4 C L 51 L 20 155/82 H 97 03/24/19 12:20 53 L 22 98 03/24/19 12:10 51 L 13 96 03/24/19 12:00 52 L 12 135/83 96 03/24/19 11:50 51 L 11 L 97 03/24/19 11:40 50 L 14 98 03/24/19 11:30 54 L 17 122/105 H 97 03/24/19 11:20 52 L 20 97 03/24/19 11:18 59 L 9 L 03/24/19 11:00 54 L 15 131/77 96 03/24/19 10:50 58 L 16 96 03/24/19 10:40 56 L 14 95 03/24/19 10:32 55 L 14 96 03/24/19 10:30 53 L 18 95 03/24/19 10:28 53 L 18 95 03/24/19 10:10 55 L 16 98 03/24/19 10:00 56 L 14 129/78 94 03/24/19 09:50 56 L 18 97 03/24/19 09:43 67 95 03/24/19 09:40 60 16 97 03/24/19 09:34 56 L 14 96 03/24/19 09:32 59 L 12 122/73 96 03/24/19 09:14 36.7 C 60 18 135/80 94 Laboratory Results Laboratory Results - last 24 hr 03/24/19 03/24/19 03/24/19 09:33 09:33 09:33 WBC 5.23 RBC 4.64 L Hgb 14.4 Hct 41.5 L MCV 89.4 MCH 31.0 MCHC 34.7 RDW Std Deviation 42.7 RDW Coeff of Maria [place] 13.1 Plt Count 162 MPV 9.4 Immature Gran % (Auto) 0.4 Neut % (Auto) 56.8 Lymph % (Auto) 32.1 [place] % (Auto) 9.2 Eos % (Auto) 1.3 Baso % (Auto) 0.2 Immature Gran # (Auto) 0.02 Neut # (Auto) 2.97 Lymph # (Auto) 1.68 [place] # (Auto) 0.48 Eos # (Auto) 0.07 Baso # (Auto) 0.01 PT 10.6 INR 1.0 APTT 24.8 PTT Ratio 0.9 Sodium 143 Potassium 4.3 Chloride 110 H Carbon Dioxide 26 Anion Gap 6.0 BUN 22 H Creatinine 1.03 Est Cr Clr Drug Dosing 76.4 Est GFR ( Amer) 86.7 Est GFR (Non-Af Amer) 74.8 BUN/Creatinine Ratio 21.1 H Glucose 98 Calcium 9.4 Total Bilirubin 0.5 AST 20 ALT 33 Alkaline Phosphatase 54 POC Troponin I Troponin I Total Protein 7.3 Albumin 3.8 Globulin 3.5 Albumin/Globulin Ratio 1.1 Lipase 157 Urine Color Urine Appearance Urine pH Ur Specific [place] Urine Protein Urine Glucose (UA) Urine Ketones Urine Blood Urine Nitrite Urine Bilirubin Urine Urobilinogen Ur Leukocyte Esterase 03/24/19 03/24/19 03/24/19 09:48 13:27 15:29 WBC RBC Hgb Hct MCV MCH MCHC RDW Std Deviation RDW Coeff of [place] Plt Count MPV Immature Gran % (Auto) Neut % (Auto) Lymph % (Auto) [place] % (Auto) Eos % (Auto) Baso % (Auto) Immature Gran # (Auto) Neut # (Auto) Lymph # (Auto) [place] # (Auto) Eos # (Auto) Baso # (Auto) PT INR APTT PTT Ratio Sodium Potassium Chloride Carbon Dioxide Anion Gap BUN Creatinine Est Cr Clr Drug Dosing Est GFR ( Amer) Est GFR (Non-Af Amer) BUN/Creatinine Ratio Glucose Calcium Total Bilirubin AST ALT Alkaline Phosphatase POC Troponin I < 0.03 Troponin I < 0.015 Total Protein Albumin Globulin Albumin/Globulin Ratio Lipase Urine Color Yellow Urine Appearance Clear Urine pH 7.0 Ur Specific [place] 1.010 Urine Protein Negative Urine Glucose (UA) Negative Urine Ketones Negative Urine Blood Negative Urine Nitrite Negative Urine Bilirubin Negative Urine Urobilinogen Negative Ur Leukocyte Esterase Negative Diagnostic Findings ECG personally reviewed: ECG 03/24/2019: Sinus bradycardia 59 bpm with first-degree AV block. LBBB. Chest x-ray 03/24/2019: No active process per Radiology. Echo 03/24/2019 personally reviewed: Mildly dilated left ventricle with low- normal systolic function. EF 50-55%. Septal motion consistent with bundle- branch block. Mild concentric left ventricular hypertrophy. No significant valvular abnormalities. Medications Administered Current Inpatient Medications Acetaminophen (Tylenol) 650 mg PO Q4H PRN PRN Reason: Moderate Pain Stop: 04/23/19 13:23 [facility] Stop: 04/24/19 08:59 Citalopram Hydrobromide (Celexa) 20 mg PO QAM [facility] Stop: 04/24/19 08:59 Cyclobenzaprine HCl (Flexeril) 10 mg PO HS PRN PRN Reason: Muscle Spasm Stop: 04/23/19 13:23 Levothyroxine Sodium (Synthroid) 75 mcg PO DAILYBB [facility] Stop: 04/24/19 06:29 Lisinopril (Zestril) 10 mg PO QAM [facility] Stop: 04/24/19 08:59 Lorazepam (Ativan) 0.5 mg PO TID PRN PRN Reason: Anxiety Stop: 04/23/19 13:23 Last Admin: 03/24/19 15:34 Dose: 0.5 mg Documented by: Ondansetron HCl (Zofran) 4 mg IV Q4H PRN PRN Reason: Nausea And Vomiting Stop: 04/23/19 13:23 Pravastatin Sodium (Pravachol) 20 mg PO HS [facility] Stop: 04/23/19 20:59 Trazodone HCl (Desyrel) 50 mg PO HS [facility] Stop: 04/23/19 20:59 Vitamin D (Vitamin D3) 1,000 units PO [facility] Stop: 04/24/19 08:59 PG Care Time/CCT Total # of Minutes Spent Total Time Spent with Patient: Total time spent is greater than 50% in coordination of care (as documented) at patient's floor/unit and/or counseling patient: (1) CAD (coronary artery disease) Associated angina: angina presence unspecified Coronary Disease-Associated Artery/Lesion type: unspecified vessel or lesion type [place] vs. transplanted heart: [place] heart Qualified Code(s): I25.10 - Atherosclerotic heart disease of [place] coronary artery without angina pectoris
[2019-03-24] MEDS ORDERED: PRAVASTATIN SOD 20 MG TAB PO SCH (21:00)
[2019-03-24] MEDS ORDERED: TRAZODONE HCL 50 MG TAB PO SCH (21:00)
[2019-03-25] MEDS: LORazepam 0.5 MG TAB PO PRN (03:10)
[2019-03-25] MEDS ORDERED: LEVOTHYROXINE SODIUM 75 MCG TABLET PO SCH (06:30)
[2019-03-25 06:57] LABS: Hematocrit (blood only) 41.1 % (42-52); Hemoglobin 14.3 g/dL (14.0-18.0); Mean Corpuscular Hgb Conc 34.8 g/dL (32-36); Mean Corpuscular Volume 89.9 fL (80-100); Mean Platelet Volume 9.2 fL (7.4-10.4); Platelet Count 150 K/uL (130-400); RDW Coefficient of Variation 13.1 % (11.5-14.5); RDW Standard Deviation 42.6 fL (36.4-46.3); Red Blood Count 4.57 M/uL (4.7-6.1); White Blood Count 5.32 K/uL (4.8-10.8)
[2019-03-25 07:08] LABS: Estimated Average Glucose 103 mg/dl; Hemoglobin A1C 5.2 % (4.5-5.6)
[2019-03-25 07:28] LABS: Albumin Level 3.6 gm/dl (3.4-5.0); BUN Creatinine Ratio 17.3 (10-20); Creatinine Clr Calc Pharmacy 67.2 ml/min; Est GFR (African American) 75.1; Est GFR (Non-African American) 64.8
[2019-03-25 07:30] LABS: Albumin Globulin Ratio 1.1 (0.9-2); Bilirubin,Total 0.6 mg/dl (0.2-1); Globulin 3.4 gm/dl (2.5-4.0)
[2019-03-25] MEDS ORDERED: ASPIRIN 325 MG ECTAB PO SCH (09:00)
[2019-03-25] MEDS ORDERED: CITALOPRAM 20 MG TAB PO SCH (09:00)
[2019-03-25] MEDS ORDERED: LISINOPRIL 10 MG TAB PO SCH (09:00)
[2019-03-25] MEDS ORDERED: CHOLECALCIFEROL 1,000 UNITS TAB PO SCH (09:00)
[2019-03-25] MEDS ORDERED: REGADENOSON 0.4 MG/5 ML SYR IV ONE (09:50)
--- NOTE | 2019-03-25 09:52 | Cardiology Progress Note ---
Date of Service March 25, 2019 Assessment & Plan (1) Exertional chest pain: Chest pain had some atypical components and was reproducible on exam yesterday. Myocardial perfusion study did not suggest ischemia. No further ischemic evaluation recommended at this time. Consider musculoskeletal origin or other etiology. He also mentioned a nursing staff per her report that he had a burning sensation in the center of his chest. She plans on discussing this with hospitalist. (2) CAD (coronary artery disease): Has reported mild nonobstructive CAD. Continue aspirin 81 mg daily. Continue statin therapy. Negative myocardial perfusion study for ischemia as noted above. If he has continued symptoms with no identifiable cause as an outpatient, could consider further evaluation at that time. This was discussed with him. (3) Hyperlipidemia: He has not been able to tolerate Lipitor, Crestor, and Zetia in the past due to elevated transaminase levels. He is tolerating pravastatin. Continue current medication. (4) Left bundle branch block (LBBB): Chronic. Because of left bundle-branch block, myocardial perfusion study was ordered as the noninvasive ischemic evaluation modality. Disposition: From a cardiology perspective, he can be discharged. Plan of care discussed with Dr. Savage of the primary hospitalist service. Subjective The chest pain that brought him to the hospital has not return. He did have approximately 15-30 seconds of a left lateral stabbing pain at approximately 3:00 a.m. when he got up to use the restroom. He otherwise denies pain currently. He denies shortness of breath, syncope, near-syncope, palpitations, edema. Myocardial perfusion study currently pending for later today. Review of systems: As above. Physical Exam Physical Exam: Gen.: No acute distress. Alert and oriented. HEENT: Anicteric sclera. Neck: No JVD. Cardiac: No ventricular heave. Regular. Normal S1-S2. No murmurs, rubs, or gallops. Pulmonary: Clear to auscultation bilaterally without wheezes, rales, or rhonchi. Abdomen: Soft, nontender, nondistended, with normoactive bowel sounds. No bruits noted. Extremities: No edema or cyanosis. Psychiatric: Affect appears appropriate. Chest: Nontender to palpation. Results & Data Vital Signs (Past 12 Hours) Vital Signs Temp Pulse Pulse Resp BP Pulse Ox 03/25/19 08:00 56 L 03/25/19 07:01 36.6 C 59 L 16 132/76 94 03/25/19 02:32 36.6 C 55 L 18 118/73 94 03/24/19 23:22 36.4 C L 55 L 16 105/68 97 03/24/19 23:00 56 L Laboratory Results Laboratory Results - last 24 hr 03/24/19 03/24/19 03/24/19 09:33 09:33 09:48 WBC RBC Hgb Hct MCV MCH MCHC RDW Std Deviation RDW Coeff of [place] Plt Count MPV PT 10.6 INR 1.0 APTT 24.8 PTT Ratio 0.9 Sodium 143 Potassium 4.3 Chloride 110 H Carbon Dioxide 26 Anion Gap 6.0 BUN 22 H Creatinine 1.03 Est Cr Clr Drug Dosing 76.4 Est GFR ( Amer) 86.7 Est GFR (Non-Af Amer) 74.8 BUN/Creatinine Ratio 21.1 H Glucose 98 Estimat Average Glucose Hemoglobin A1c Calcium 9.4 Total Bilirubin 0.5 AST 20 ALT 33 Alkaline Phosphatase 54 POC Troponin I < 0.03 Troponin I Total Protein 7.3 Albumin 3.8 Globulin 3.5 Albumin/Globulin Ratio 1.1 Triglycerides Cholesterol LDL Cholesterol, Calc VLDL Cholesterol, Calc HDL Cholesterol Cholesterol/HDL Ratio Lipase 157 Urine Color Urine Appearance Urine pH Ur Specific [place] Urine Protein Urine Glucose (UA) Urine Ketones Urine Blood Urine Nitrite Urine Bilirubin Urine Urobilinogen Ur Leukocyte Esterase 03/24/19 03/24/19 03/24/19 13:27 15:29 23:15 WBC RBC Hgb Hct MCV MCH MCHC RDW Std Deviation RDW Coeff of [place] Plt Count MPV PT INR APTT PTT Ratio Sodium Potassium Chloride Carbon Dioxide Anion Gap BUN Creatinine Est Cr Clr Drug Dosing Est GFR ( Amer) Est GFR (Non-Af Amer) BUN/Creatinine Ratio Glucose Estimat Average Glucose Hemoglobin A1c Calcium Total Bilirubin AST ALT Alkaline Phosphatase POC Troponin I Troponin I < 0.015 < 0.015 Total Protein Albumin Globulin Albumin/Globulin Ratio Triglycerides Cholesterol LDL Cholesterol, Calc VLDL Cholesterol, Calc HDL Cholesterol Cholesterol/HDL Ratio Lipase Urine Color Yellow Urine Appearance Clear Urine pH 7.0 Ur Specific [place] 1.010 Urine Protein Negative Urine Glucose (UA) Negative Urine Ketones Negative Urine Blood Negative Urine Nitrite Negative Urine Bilirubin Negative Urine Urobilinogen Negative Ur Leukocyte Esterase Negative 08/03/25/19 03/25/19 06:34 06:34 06:34 WBC 5.32 RBC 4.57 L Hgb 14.3 Hct 41.1 L MCV 89.9 MCH 31.3 MCHC 34.8 RDW Std Deviation 42.6 RDW Coeff of [place] 13.1 Plt Count 150 MPV 9.2 PT INR APTT PTT Ratio Sodium 141 Potassium 4.0 Chloride 109 H Carbon Dioxide 26 Anion Gap 6.0 BUN 20 H Creatinine 1.16 Est Cr Clr Drug Dosing 67.2 Est GFR ( Amer) 75.1 Est GFR (Non-Af Amer) 64.8 BUN/Creatinine Ratio 17.3 Glucose 106 H Estimat Average Glucose 103 Hemoglobin A1c 5.2 Calcium 9.0 Total Bilirubin 0.6 AST 16 ALT 31 Alkaline Phosphatase 51 POC Troponin I Troponin I Total Protein 7.0 Albumin 3.6 Globulin 3.4 Albumin/Globulin Ratio 1.1 Triglycerides 127 Cholesterol 181 LDL Cholesterol, Calc 117 VLDL Cholesterol, Calc 25 HDL Cholesterol 39 Cholesterol/HDL Ratio 5 Lipase Urine Color Urine Appearance Urine pH Ur Specific [place] Urine Protein Urine Glucose (UA) Urine Ketones Urine Blood Urine Nitrite Urine Bilirubin Urine Urobilinogen Ur Leukocyte Esterase Diagnostic Findings Myocardial perfusion study 03/25/2019 personally reviewed: Fixed defect but no reversible defect to suggest ischemia. Fixed defects had normal wall motion in that area and was likely related to left bundle-branch block. Medications Administered Current Inpatient Medications Acetaminophen (Tylenol) 650 mg PO Q4H PRN PRN Reason: Moderate Pain Stop: 04/23/19 13:23 Last Admin: 03/24/19 20:40 Dose: 650 mg Documented by: [facility] ([facility]) [facility] [place]: 04/24/19 08:59 Citalopram Hydrobromide (Celexa) 20 mg PO QAM [facility] Stop: 04/24/19 08:59 Cyclobenzaprine HCl (Flexeril) 10 mg PO HS PRN PRN Reason: Muscle Spasm Stop: 04/23/19 13:23 Levothyroxine Sodium (Synthroid) 75 mcg PO DAILYBB [facility] Stop: 04/24/19 06:29 Last Admin: 03/25/19 06:48 Dose: 75 mcg Documented by: Lisinopril (Zestril) 10 mg PO QAM [facility] Stop: 04/24/19 08:59 Lorazepam (Ativan) 0.5 mg PO TID PRN PRN Reason: Anxiety Stop: 04/23/19 13:23 Last Admin: 03/25/19 03:10 Dose: 0.5 mg Documented by: Ondansetron HCl (Zofran) 4 mg IV Q4H PRN PRN Reason: Nausea And Vomiting Stop: 04/23/19 13:23 Pravastatin Sodium (Pravachol) 20 mg PO [facility] Stop: 04/23/19 20:59 Last Admin: 03/24/19 22:04 Dose: 20 mg Documented by: Trazodone HCl (Desyrel) 50 mg PO [facility] Stop: 04/23/19 20:59 Last Admin: 03/24/19 22:04 Dose: 50 mg Documented by: Vitamin D (Vitamin D3) 1,000 units PO [facility] Stop: 04/24/19 08:59 PG Care Time/CCT Total # of Minutes Spent Total Time Spent with Patient: Total time spent is greater than 50% in coordination of care (as documented) at patient's floor/unit and/or counseling patient: (1) CAD (coronary artery disease) Associated angina: angina presence unspecified Coronary Disease-Associated Artery/Lesion type: unspecified vessel or lesion type [place] vs. transplanted heart: [place] heart Qualified Code(s): I25.10 - Atherosclerotic heart disease of [place] coronary artery without angina pectoris
--- NOTE | 2019-03-25 14:29 | Myocardial Perfusion Study ---
Date of Service March 25, 2019 Myocardial Perfusion Study [facility] Myocardial Perfusion Study Report Procedure: 1. Myocardial perfusion study performed in multiple views/images 2. Lexiscan pharmacologic stress ECG Indications: 1. Chest pain 2. Left bundle-branch block Ordering physician: Dr. Harrison Procedural details: For the stress portion of the study, Lexiscan 0.4 mg was intravenously administered followed by a saline flush. This was followed by 33.2 mCi of technetium 99m Cardiolite, injected at 11:10 a.m. on 03/25/2019. 30 minutes following the injection, imaging of the heart was performed in multiple projections. For the rest portion of the study, 10.9 mCi technetium 99m Cardiolite was injected intravenously at 9:30 a.m. on 03/25/2019. 1 hour following the injection, imaging of the heart was performed in the same projections. Lexiscan stress ECG: Resting ECG demonstrated: Sinus bradycardia with first-degree AV block at 59 bpm. LBBB. Maximum heart rate: 103 bpm Maximal, age-predicted heart rate: 67 % Resting blood pressure: 120/72 mmHg Maximum blood pressure: 140/[address] changes: None Arrhythmia: None Symptoms: No chest pain or shortness of breath reported. Findings: Rotating raw imaging demonstrated no significant lung uptake. There is no significant motion artifact. Heart size appeared normal. Myocardial perfusion demonstrated a moderate area with mildly reduced uptake involving the mid to apical septum, mid to apical anteroseptum, and mid to apical inferoseptal wall segments. These defects were fixed in post stress and rest imaging. There were no significant reversible defects to suggest ischemia. Ejection fraction: 48 % Wall motion: Normal No significant transient ischemic dilation. Impression: 1. Negative myocardial perfusion study for ischemia. 2. Fixed defect likely secondary to LBBB as wall motion appeared to be normal. 3. Slightly reduced LV systolic function. EF 48%. 4. No chest pain reported. 5. Indeterminate Lexiscan ECG.
--- NOTE | 2019-04-04 21:11 | Discharge Summary ---
Date of Service March 25, 2019 Admission HPI Per Admitting Provider This is a 68-year-old male with past medical history of CAD, HTN, HLD, chronic LBBB, obesity with BMI of 30.6, BPH, interstitial cystitis, hypothyroidism, Anahi's thyroiditis, who presents to the ER with chest pain times last 3 weeks. Patient notes that this has been waxing and waning, he does not specifically note if this is worse on exertion. He feels this also in his left shoulder but does not radiate to any other location. Patient rates his pain as mild currently. Patient denies any history of drinking alcohol routinely or smoking. He does exercise routinely, 3-4 times per week lifts weights, and l kelly an active lifestyle. The patient underwent cardiac cath at [facility] in 2005 where nonobstructive CAD was found, it sounds like there was no PCI or stents placed during that timeframe. He routinely follows with Dr. Harrison with cardiology as an outpatient. Patient takes all of his medications routinely including a baby aspirin daily. Pertinent Family Hx: Brother, A&W, age 67, recently diagnosed with CAD and underwent open heart surgery 1 month ago Father, at age 69 from CAD and [place] after a hip fracture repair Mother, at age 67 from CHF and complications Will admit to telemetry for observation initial troponin is negative, EKG is negative except for chronic LBBB. Labs are otherwise WNL. Principal Diagnosis Exertional Chest pain Discharge Exam General: awake, alert, no apparent distress Head: Normocephalic, atraumatic ENT: PERRL, EOMI, no pharyngeal exudate, mucous membranes moist Chest: Clear to auscultation, on room air, no adventitious breath sounds Cardiac: Regular rate and rhythm, no murmur, no JVD, normal peripheral pulses, good capillary refill Abdominal: NABS x 4 quadrants, soft, nontender to palpation, no rebound, guarding or tenderness Extremities: Normal inspection, no peripheral edema or erythema, calfs nontender to palpation Psych: Normal mood and affect Neuro: AAO x 3, strength intact bilaterally and related 5/5, no motor deficits, speech is clear, no peripheral sensory deficits Discharge Data Allergies Allergy/AdvReac Type Severity Reaction Status Date / Time tamsulosin Allergy Intermediate WEAKNESS Verified 03/24/19 10:47 strawberry Allergy Unknown STRAWBERRIES Verified 03/24/19 10:47 GIVE RASH cephalexin AdvReac Intermediate MUSCLE Verified 03/24/19 10:47 WEAKNESS ketamine AdvReac Unknown BURNING ON Verified 03/24/19 10:47 URINATION trospium AdvReac Unknown MUSCLE Verified 03/24/19 10:47 WEAKNESS Consultations 03/24/19 11:13 ED Decision to Admit Stat 03/24/19 13:24 Consult Cardiology Routine Consult Case Management - Discharge Planning Routine Hospital Course (1) Exertional chest pain: - Admit to tele for observation for r/o - Trend cardiac biomarkers, initial set was negative - EKG reviewed as above - Check 2 D echo - If negative enzymes can consider a stress test tomorrow morning. - PT/OT consulted - Consult cardiology, Dr. Harrison, follows with him as an outpatient - Lipid panel, A1c with a.m. labs as the patient has already eaten breakfast. - Check x-ray of left shoulder to rule out musculoskeletal issue, patient reports he does take ibuprofen 200 mg QID routinely at home for muscular pain. On day of discharge: Appreciate Cardio input: (1) Exertional chest pain: Chest pain had some atypical components and was reproducible on exam yesterday. Myocardial perfusion study did not suggest ischemia. No further ischemic evaluation recommended at this time. Consider musculoskeletal origin or other etiology. He also mentioned a nursing staff per her report that he had a burning sensation in the center of his chest. Will defer to PCP. (2) CAD (coronary artery disease): Has reported mild nonobstructive CAD. Continue aspirin 81 mg daily. Continue statin therapy. Negative myocardial perfusion study for ischemia as noted above. If he has continued symptoms with no identifiable cause as an outpatient, could consider further evaluation at that time. This was discussed with him. (3) Hyperlipidemia: He has not been able to tolerate Lipitor, Crestor, and Zetia in the past due to elevated transaminase levels. He is tolerating pravastatin. Continue current medication. (4) Left bundle branch block (LBBB): Chronic. Because of left bundle-branch block, myocardial perfusion study was ordered as the noninvasive ischemic evaluation modality. (2) CAD (coronary artery disease): -Continue on full dose aspirin every morning, continue peindopril erbumine 4 mg daily, pravastatin 20 HS (3) Left bundle branch block (LBBB): - appears to be chronic on EKG, as reviewed (4) Hyperlipidemia: - Statin therapy as above (5) Hypothyroidism: -Continue levothyroxine 75 mcg daily (6) H/O Anahi thyroiditis: - hx of such (7) History of prostate surgery: (8) Chronic interstitial cystitis: - Patient reports that this is a chronic issue ongoing for several months, he has recently seen Dr. Nieves as an outpatient for superior hypogastric plexus block which he reports did not improve symptoms. - Will check UA to r/o infectious process (9) DVT prophylaxis: - teds, aspirin 325 mg daily, ambulatory Total Time Total Time Spent Total Time Spent (In Minutes): 32 Total Time Includes: Examination of the Patient, Discharge Planning and Medication Reconciliation Discharge Plan Discharge Items Patient Disposition: Home - Self-Care Reason For Visit: CHEST PAIN Discharge Diagnosis: Chest pain Discharge Goals: Decrease discomfort Activity: Resume your previous activity Non-emergency contact: Primary Care Provider Call non-emergency contact if: you have any medication questions Follow-up/Referrals: Cullen Flores [Primary Care Provider] - Diet: Regular Addtl Provider Instructions: You had Myocardial perfusion study to check our heart for lack of blood flow. This was negative. No further evaluation recommended at this time. Given that you also suffered from burning in your chest, will place you on a medicine to decrease reflux. Prescriptions: New ranitidine HCl 150 mg tablet 150 mg PO DAILY Qty: 30 RF: 0 Continued perindopril erbumine 4 mg tablet 4 mg PO QAM RF: 0 aspirin 81 mg tablet,delayed release (DR/EC) 81 mg PO HS RF: 0 citalopram 20 mg tablet 20 mg PO QAM RF: 0 ibuprofen 200 mg tablet 200 mg PO QID PRN (Reason: Pain) RF: 0 levothyroxine 75 mcg capsule 75 mcg PO DAILYBB RF: 0 lorazepam [Ativan] 0.5 mg tablet 0.5 mg PO TID PRN (Reason: Anxiety) RF: 0 tadalafil [Cialis] 20 mg tablet 20 mg PO DAILY PRN (Reason: SEXUAL AID) RF: 0 cyclobenzaprine 10 mg tablet 10 mg PO HS PRN (Reason: Muscle Spasm) RF: 0 melatonin 3 mg tablet 3 mg PO HS PRN (Reason: Sleep) RF: 0 trazodone 50 mg tablet 50 mg PO HS RF: 0 ascorbic acid (vitamin C) 250 mg tablet 250 mg PO QAM RF: 0 pravastatin 20 mg tablet 20 mg PO HS RF: 0 vitamin D3-vitamin K2 (MK4) 1,000-100 unit-mcg Tablet 1 tab PO QAM RF: 0 No Action Toviaz 8 mg tablet extended release 24 hr 8 mg PO DAILY Qty: 90 RF: 2 Stand-Alone Forms: Call Back Authorization, [facility] Discharge Orders: Discharge Order (Routine); Ordered 03/25/19 Ordered By: Cheikh Savage Admission Data Admit Date/Time: 03/24/19 11:26 Attending Provider: Cheikh Savage Admit Provider: Bubba Leal Primary Care Provider: Cullen Flores Other Providers: Bubba Leal ; Praneeth Harrison Service: Telemetry Other Interventions: Discharge Summary Assessment (RN) Last Done: 03/25/19 14:54 DC Date/Time DO NOT enter until pt leaves facility: 03/25/19 15:15
== END 2019-03-25 15:15 | disposition home or self-care (01) ==
LOC: ED 09:12 → 2S 09:12 → SUATTDRO 11:26 → 2S 12:31
DX: Z91.018 Allergy to other foods; E78.5 Hyperlipidemia, unspecified; Z96.659 Presence of unspecified artificial knee joint; R07.9 Chest pain, unspecified; Z79.899 Other long term (current) drug therapy; Z79.82 Long term (current) use of aspirin; N30.10 Interstitial cystitis (chronic) without hematuria; I25.10 Atherosclerotic heart disease of native coronary artery without angina pectoris; E78.00 Pure hypercholesterolemia, unspecified; I44.7 Left bundle-branch block, unspecified

== ENCOUNTER 2025-06-23 11:53 | Observation (INO) ==
--- NOTE | 2025-06-23 12:13 | History & Physical Report ---
Date of Service June 23, 2025 Assessment & Plan (1) Cardiomyopathy: Plan 1. Cardiomyopathy: Nonischemic. Possibly due to left bundle branch block. Cardiac MRI suggested idiopathic. Overall well compensated. He is an active individual, he has ejection fraction in the range where a prophylactic ICD is recommended. Based on his QRS duration and left bundle branch block morphology he is a good candidate for resynchronization therapy. He is on guideline directed medical therapy. No myocardial infarction in the past 40 days or revascularization in the past 90 days. Anticipated longevity greater than 1 year. Shared decision making was employed and we have agreed to proceed with a biventricular ICD. Risks and benefits discussed. 2. CAD: No angina. Nonobstructive. Continue risk factor modification. Continue aspirin 81 mg daily. Continue statin therapy as tolerated. 3. Dyslipidemia: Continue pravastatin 4. LBBB: Diagnosed many years ago. History of Present Illness Primary Care Provider: PURNIMA Roe Patient is a 75-year-old gentleman with a history of nonischemic cardiomyopathy, associated heart failure and left bundle branch block. He presents today for biventricular ICD implant. Allergies Allergy/AdvReac Type Severity Reaction Status Date / Time tamsulosin Allergy Intermediate WEAKNESS Verified 05/17/25 09:04 strawberry Allergy Mild STRAWBERRIES Verified 05/17/25 09:04 GIVE RASH cephalexin AdvReac Intermediate MUSCLE Verified 05/17/25 09:04 WEAKNESS ketamine AdvReac Intermediate BURNING ON Verified 05/17/25 09:04 URINATION trospium AdvReac Mild MUSCLE Verified 05/17/25 09:04 WEAKNESS Home Medications Medication Instructions Recorded Confirmed Type aspirin 81 mg tablet,delayed 81 mg PO HS 10/30/18 05/17/25 History release ibuprofen 200 mg tablet 200 mg PO QID PRN Pain 10/30/18 05/17/25 History cholecalciferol (vitamin D3) 125 125 mcg PO QPM 08/13/22 05/17/25 History mcg (5,000 unit) capsule Caron's Relaxing Legs 2 tab PO UD PRN restless legs 01/17/23 05/17/25 History avlqrnkn-xnm-yxopx 200 mcg-lycop 1 tab PO QAM 01/17/23 05/17/25 History 175 mcg-lutei 250 mcg-herb 178 tablet (Beltran Multivitamin For Men) alprazolam 0.5 mg tablet 0.5 mg PO TID PRN anxiety #90 tabs 09/02/23 05/17/25 Rx amitriptyline 50 mg tablet 50 mg PO DAILY 03/17/24 05/17/25 History fish oil-dha-epa PO 03/17/24 05/17/25 History magnesium 2 tab PO .every bedtime 09/27/24 05/17/25 History pravastatin 80 mg tablet 80 mg PO HS #90 tabs 11/17/24 05/17/25 Rx sacubitril 97 mg-valsartan 103 mg 1 tab PO BID #180 tabs 01/04/25 05/17/25 Rx tablet (Entresto) citalopram 20 mg tablet 20 mg PO QAM #90 tabs 01/19/25 05/17/25 Rx carvedilol 12.5 mg tablet 12.5 mg PO BID #180 tabs 02/28/25 05/17/25 Rx sildenafil 100 mg tablet 100 mg PO DAILY PRN sexual 03/04/25 05/17/25 Rx activity #7 tabs fluticasone propionate 50 2 spray intranasal DAILY #48 grams 03/07/25 05/17/25 Rx mcg/actuation nasal spray,suspension fesoterodine 8 mg tablet,extended 8 mg PO DAILY 03/21/25 05/17/25 History release 24 hr levothyroxine 75 mcg tablet 75 mcg PO QAM #30 tabs 06/08/25 Rx Past Med/Surg History Problem List (Updated 05/16/25 @ 08:35 by PURNIMA Roe) Erectile dysfunction Cardiomyopathy Left tibialis tendinitis Insomnia Hypnotic dependence Encounter for pre-operative examination Exertional chest pain (Acute) DVT prophylaxis First degree atrioventricular block (Acute) Urinary urgency (Acute) Urinary frequency (Acute) Thyroid disorder (Acute) Pelvic pain (Acute) Anahi's thyroiditis (Acute) Chronic interstitial cystitis with hematuria (Acute) Prostate cancer screening Pre-op testing Anxiety CAD (coronary artery disease) (Acute) nonobstructive per 2005 cath History of herniorrhaphy (Chronic) Right Inguinal hernia repair Left bundle branch block (LBBB) (Chronic) chronic; follows with Dr Harrison Hyperlipidemia (Chronic) Hypothyroidism (Chronic) Chronic interstitial cystitis (Chronic 01/30/13) Medical History Depression Hypertension Urinary frequency Surgical History History of urologic surgery History of bladder surgery S/P TURP History of colonoscopy History of tonsillectomy History of cardiac cath S/P laparoscopic cholecystectomy H/O Achilles tendon repair S/P TKR (total knee replacement) Family History Sister Colorectal cancer Father Myocardial infarction Mother Myocardial infarction Brother Hodgkins lymphoma Myocardial infarction Other Coronary heart disease Heart disease Hypertension No family history of adverse response to anesthesia Denies family history of Ovarian cancer Prostate cancer Breast cancer Social History Smoking Status: Never smoker Second Hand Exposure: No; Do You Dip or Chew Tobacco: No; Hx Alcohol Use: Yes Alcohol type: wine Hx Substance Use: No Preferred Language: Vietnamese Communication Ability: Effective Visual Impairment: No Limitations Hearing Ability: Normal Service Writer Required: No Beliefs That Will Affect Care: None marital status: Current Living Situation: Spouse current occupational status: retired Feels Safe at Home: Yes Diet: regular Diet Comment: regular caffeine: Yes during the past year weight has: remained stable Dental Care, Regularly: Yes Physical Activity Frequency: Daily Seatbelt Use: always Sunscreen Use: Yes Assistive Devices: Glasses Physical Exam Physical Exam: Alert. Oriented. Normal respiratory effort Regular rate and rhythm No significant peripheral edema (1) Cardiomyopathy Cardiomyopathy type: dilated Qualified Code(s): I42.0 - Dilated cardiomyopathy
--- NOTE | 2025-06-23 12:23 | Pre Anesthesia Assessment ---
Date of Service June 23, 2025 Pre Sedation Assessment Vital Signs Pulse Resp BP Pulse Ox O2 Del Method 06/23/25 12:17 67 16 121/71 97 Room Air Cardiovascular + regular rate and + regular rhythm Respiratory + respiratory effort normal Pre-Sedation Airway Assessment Smoking Status: Never smoker Hx Sleep Apnea: No Hx Difficult Intubation: No Short, Thick Neck: No Thyromental Distance: < 3.5 Finger Breadths Oral Cavity: + WNL Mallampati Class: II ASA: ASA3 NPO Status Date of Last Intake of Fluids: 06/22/25 Time of Last Intake of Fluids: 20:00 Date of Last Intake of Solid Food: 06/22/25 Time of Last Intake of Solid Foods: 20:00 Procedure Planning Contraindications for Sedation: none Current Medications Reviewed: Yes Notes The planned sedation has been discussed with the patient. Informed Consent was obtained. I have identified the patient, determined the appropriateness of sedation and have assessed the patient immediately prior to the procedure. All medicine(s) and interventions are by my order.
--- NOTE | 2025-06-23 13:52 | Post Anesthesia Assessment ---
Date of Service June 23, 2025 Post Sedation Assessment Vital Signs Pulse Resp BP Pulse Ox O2 Del Method 06/23/25 12:17 67 16 121/71 97 Room Air Recovery Score Activity: Moves 4 extremities Respiration: Deep Breath/Cough Circulation: +/-20% PreAnes Value Consciousness: Arouseable (by name) Oxygen Saturation: O2 needed for >90% Discharge Sedation Level of Care: Fast Track Phase II Post Sedation Plan On clinical assessment, the patient appears to have tolerated the sedation without complications. Patient is recovering as anticipated. Patient will continue to be monitored by nursing and may be discharged when sedation discharge criteria are met per below protocol. Upon Completions of procedure up to 15 minutes continue every 5 minute vital signs and the P.A.R. score; then discharge to a Phase I or Fast Track to Phase II per the following guidelines: * Discharge Patient to appropriate Phase II area if PAR is 8 or greater or return to pre- procedure baseline. The post - procedure orders will be as directed. * If PAR score is less than 8 or not return to pre-procedure baseline then patient will follow Phase I monitoring till PAR is reached for Phase II. The Phase I may be done in procedure room or may call to secure a Phase I area. * If naloxone or flumazenil are used for reversal, hold in Phase I for continued monitoring from when last reversal dose was given for a minimum of 60 minutes or longer pending the nurse and/or physician discretion of patient condition before discharge to Phase II. Please call the Sedation Physician to re-evaluate and complete post-note for discharge to Phase II area. Do NOT discharge from procedure sedation or Phase 1 until post- sedation evaluation note is complete by procedure /sedation MD Sedation Discharge Instructions to be given to the patient at discharge to home.
--- NOTE | 2025-06-23 13:52 | Electrophysiology Report ---
Date of Service June 23, 2025 Electrophysiology Procedure Electrophysiology Procedure Report Procedure performed: Implantation of biventricular ICD, cardioversion Staff cabinet builder: Trevor Hill MD Indication: Patient is a 75-year-old gentleman with history of nonischemic c ardiomyopathy. He has [place] [employer] class II symptoms. Ejection fraction less than 35%. On guideline directed medical therapy. No revascularization in the past 90 days or myocardial infarction in the past 40 days. Anticipated longevity greater than 1 year. QRS duration greater than 120 ms with left bundle branch block pattern. He was likely good candidate for an ICD as primary prevention and sudden cardiac . A biventricular device was selected given his conduction disease. Shared decision making was employed prior to scheduling the patient today. Procedure detail The patient was informed of the risk benefits and alternatives to the intended procedure. He understood and wished to proceed. He was taken to electrophysiology suite in a fasting state. Conscious sedation was administered per protocol the patient was monitored electrocardiography throughout today's procedure. Preoperative antibiotic was administered. The patient was prepped and draped in the usual sterile fashion. The left upper pectoral area was anesthetized using subcutaneous ministration of lidocaine and Marcaine solution. An incision was made at the site and carried on the prepectoralis fossa using sharp dissection. Electrocautery was also applied for dissection as well as for hemostasis. Left axillary vein was subsequently accessed 3 times using modified Seldinger technique. Sheaths were placed over guidewires at this site and initially used to facilitate passage of the right ventricular and right atrial leads under fluoroscopic guidance. Adequate sensing and threshold parameters were obtained prior to active-fixation of the leads to the endocardial surface. The proximal portion of the leads were then sutured to the prepectoralis fossa using nonabsorbable suture. The remaining guidewire was used to facilitate passage of a guiding catheter for engagement of the coronary sinus. Once engaged limited coronary venography was performed in order to identify suitable target vessel. Once identified standard guidewire techniques were employed to deliver the lead to the target vessel. Adequate sensing and threshold parameters were obtained in the absence of diaphragmatic stimulation at high output was confirmed prior to removal of the guiding catheter. The proximal portion of the sheath was then sutured to prepectoralis fossa using nonabsorbable suture. The pocket was irrigated with antibiotic solution. The leads were then attached to the device. The device and leads were then placed in the pocket and the pocket was closed in 3 layers of absorbable suture. Steri-Strips and sterile dressing were applied. The device was tested noninvasively prior to inclusion the procedure. The patient tolerated procedure well. It should be noted that the patient did develop atrial fibrillation with lead manipulation in the right atrium. He was subsequently sedated and cardioverted with return to sinus rhythm. There were no immediate complications. Equipment used New pulse generator: Registered Medical Assistant [employer]. Model number DTPA 2QQ serial number [id number] Right atrial lead: Registered Medical Assistant [employer]. Model #5076 serial number [id number] Right ventricular lead: Registered Medical Assistant [employer]. Model number 6935M serial number [id number] Coronary sinus lead: Registered Medical Assistant [employer]. Model #4298 serial number [id number] Measured data Right atrial lead: P waves measured 2.3 mV. Pacing threshold was 1 V at 0.4 ms with a pacing appearance of 437 ohms Right ventricular lead: R waves measured 12.4 mV. Pacing threshold was 0.5 V at 0.4 ms with a pacing appearance of 494 ohms Coronary sinus lead: Pacing threshold in the LV3 to LV2 configuration is 1.75 V at 0.4 ms with a pacing appearance of 494 ohms Impression: Successful implantation of biventricular ICD Cardioversion from atrial fibrillation to normal sinus rhythm [facility] Electrophysiology codes Pacing Procedure 1: Pacin BiV electrode w/Pacer / ICD implant, add on code ICD Procedure 1: ICD: 98679 Single or dual ICD implant, chronic leads Miscellaneous Procedures Procedure 1: EP Miscellaneous: 99937 Cardioversion, elective PG Moderate Sedation Codes Moderate Sedation Codes Procedure 1: Sedation/Anesthesia: 72105 Mod Sedation by the same physician;Init15 Min Child Age 5 & Up Procedure 2: Sedation/Anesthesia: 62698 Mod Sedation by the same physician; Ea [id number] Minutes
[2025-06-23] MEDS: LIDOCAINE 1% LOCAL 20 ML VIAL ONE (14:11)
[2025-06-23] MEDS: VANCOMYCIN HCL 1000MG/20ML VIAL ONE (14:11)
[2025-06-23] MEDS: BUPIVACAINE 0.25% PF 30 ML VIAL ONE (14:11)
[2025-06-23] MEDS: ceFAZolin 330 MG/ML 1 GM VIAL ONE (14:12)
[2025-06-23] MEDS: WATER, STERILE FOR INJ 10 ML VIAL ONE (14:12)
[2025-06-23] MEDS: MIDAZOLAM HCL 5 MG/ML 1 ML VIAL ONE (14:12)
[2025-06-23] MEDS: VALSARTAN/SACUBITRIL 103/97MG TAB PO SCH (22:08)
[2025-06-23] MEDS: PRAVASTATIN SOD 40 MG TAB PO SCH (22:08)
[2025-06-23] MEDS: ASPIRIN 81 MG ECTAB PO SCH (22:09)
[2025-06-24] MEDS: LEVOTHYROXINE SODIUM 75 MCG TABLET PO SCH (05:49)
--- NOTE | 2025-06-24 07:14 | XRay Report ---
EXAM: XR chest 2V PA/lateral CLINICAL HISTORY: EXACT TIME ORDERED Evaluate for pneumothorax and l TECHNIQUE: X-ray images of the chest were obtained in posteroanterior (PA) and lateral projections. COMPARISON: 01/21/2023 FINDINGS: Pulmonary Parenchyma: Left basilar linear subsegmental atelectasis, interval new There is thickening of the pulmonary interstitium likely senile changes. Otherwise lungs are clear bilaterally. No evidence of consolidation, collapse, or focal opacities. No pulmonary nodules identified. No evidence of pleural effusion or pleural thickening. Heart and Mediastinum: There is mild cardiomegaly. The aorta is ectatic. No mediastinal widening or masses. No hilar or mediastinal lymphadenopathy. A cardiac pacemaker is identified in the left chest wall with its leads in the right atrium and right ventricle. Bony Thorax: Bony thorax appears intact without fractures or deformities. Soft Tissues: Soft tissues overlying the chest wall are unremarkable. IMPRESSION: 1. Left basilar linear subsegmental atelectasis, interval new. 2. Mild cardiomegaly. 3. No lobar collapse consolidation or pleural effusion seen. Electronically signed by Geronimo Sunshine 06-24-2025 07:14 AM
[2025-06-24] MEDS: AMITRIPTYLINE HCL 50 MG TAB PO SCH (07:47)
[2025-06-24] MEDS: CITALOPRAM 20 MG TAB PO SCH (07:48)
[2025-06-24] MEDS: OXYBUTYNIN CHLORIDE XL 5 MG TABCR PO SCH (07:49)
[2025-06-24 07:57] VITALS: RESP 22
--- NOTE | 2025-06-24 08:38 | Discharge Summary ---
Date of Service June 24, 2025 Admission HPI Per Admitting Provider Patient is a 75-year-old gentleman with a history of nonischemic cardiomyopathy, associated heart failure and left bundle branch block. He presents today for biventricular ICD implant. Principal Diagnosis Cardiomyopathy Discharge Exam At the time of discharge patient was feeling well. He was ambulatory. Minimal discomfort at the device implant site Very mild ecchymosis without evidence of hematoma or significant erythema. Nontender to palpation at the site of implant. Discharge Data Allergies Allergy/AdvReac Type Severity Reaction Status Date / Time tamsulosin Allergy Intermediate WEAKNESS Verified 05/17/25 09:04 strawberry Allergy Mild STRAWBERRIES Verified 05/17/25 09:04 GIVE RASH cephalexin AdvReac Intermediate MUSCLE Verified 05/17/25 09:04 WEAKNESS ketamine AdvReac Intermediate BURNING ON Verified 05/17/25 09:04 URINATION trospium AdvReac Mild MUSCLE Verified 05/17/25 09:04 WEAKNESS Procedures Performed Operation Date: 06/23/25 13:00 Actual Procedures p ICD Biventricular Implant - Trevor Hill MD s Cardioversion - Trevor Hill MD Ordered Studies 06/23/25 06:30 EP Lab Images for PACS ONCE Hospital Course (1) Cardiomyopathy: Plan 1. Cardiomyopathy: Nonischemic. Possibly due to left bundle branch block. Cardiac MRI suggested idiopathic. Overall well compensated. He is an active individual, he has ejection fraction in the range where a prophylactic ICD is recommended. Based on his QRS duration and left bundle branch block morphology he is a good candidate for resynchronization therapy. He is on guideline di rected medical therapy. No myocardial infarction in the past 40 days or revascularization in the past 90 days. Anticipated longevity greater than 1 year. Shared decision making was employed and we have agreed to proceed with a biventricular ICD. Risks and benefits discussed. 2. CAD: No angina. Nonobstructive. Continue risk factor modification. Continue aspirin 81 mg daily. Continue statin therapy as tolerated. 3. Dyslipidemia: Continue pravastatin 4. LBBB: Diagnosed many years ago. On the day of discharge the patient was feeling well. X-ray demonstrated stable lead position without pneumothorax. Device interrogation revealed normal function of the device. Total Time Total Time Spent Total Time Spent (In Minutes): 20 Discharge Plan Discharge Items Patient Disposition: Home - Self-Care Reason For Visit: Dilated Cardiomyopathy Discharge Diagnosis: cardiomyopathy Activity: Per Instructions section Activity Comment: no lifting left arm above shoulder or behind neck for 6 weeks Lifting: No more than 10 pounds Bathing: Keep incision dry Bathing Comment: keep wound dry and steri-strip intact until f/u Sexual Activity: When tolerated Exercise/Sports: Rest today Driving/Machine Use: Resume 1 day after discharge Non-emergency contact: Client Portfolio Manager Call non-emergency contact if: your symptoms worsen, you have a fever, your wound has increased redness, your wound has increased drainage and your wound pain has increased Follow-up/Referrals: Craig Graff CRNP [Primary Care Provider] - 06/30/25 10:20 am ( 5 at 10:20 with Craig FELTON) Diet: Heart Healthy Addtl Attending Provider Instructions: none Pending Studies at Discharge: No Stand-Alone Forms: [facility], Smoking Cessation Medications and DC Order Prescriptions: New oxycodone 5 mg tablet 5 mg PO Q6H PRN (Reason: pain) Qty: 7 0RF Continued aspirin 81 mg tablet,delayed release (DR/EC) 81 mg PO HS ibuprofen 200 mg tablet 200 mg PO QID PRN (Reason: Pain) alprazolam 0.5 mg tablet 0.5 mg PO TID PRN (Reason: anxiety) Qty: 90 0RF Rx Instructions: Following 09/01/22 order, will start tapering down. citalopram 20 mg tablet 20 mg PO QAM Qty: 90 1RF sildenafil 100 mg tablet 100 mg PO DAILY PRN (Reason: sexual activity) Qty: 7 3RF Rx Instructions: administer 30 minutes to 4 hours before activity fluticasone propionate 50 mcg/actuation spray,suspension 2 spray intranasal DAILY Qty: 48 2RF Rx Instructions: administer into each nostril levothyroxine 75 mcg tablet 75 mcg PO QAM Qty: 30 0RF cholecalciferol (vitamin D3) 125 mcg (5,000 unit) capsule 125 mcg PO QPM amitriptyline 50 mg tablet 50 mg PO DAILY fish oil-dha-epa PO magnesium 2 tab PO .every bedtime carvedilol 12.5 mg tablet 12.5 mg PO BID Qty: 180 3RF Rx Instructions: must administer with a meal/food Entresto 97-103 mg tablet 1 tab PO BID Qty: 180 3RF fesoterodine 8 mg tablet extended release 24 hr 8 mg PO DAILY Beltran Multivitamin For Men 200-175-250 mcg Tablet 1 tab PO QAM Caron's Relaxing Legs 2 tab PO UD PRN (Reason: restless legs) pravastatin 80 mg tablet 80 mg PO HS Qty: 90 3RF Discharge Orders: Discharge Order (Routine); Ordered 06/24/25 Ordered By: Trevor Hill Admission Data Admit Date/Time: 06/23/25 13:52 Attending Provider: Trevor Hill Admit Provider: Trevor Hill Primary Care Provider: Craig Graff Coding Level of Care Code 76100 IN/OBS DISCH 30 MIN/LESS Diagnoses Dilated cardiomyopathy I42.0 Cardiomyopathy type: dilated
--- NOTE | 2025-06-24 10:05 | Electrocardiogram Report ---
Test Reason : Blood Pressure : */* mmHG Vent. Rate : 67 BPM Atrial Rate : 67 BPM P-R Int : 178 ms QRS Dur : 162 ms QT Int : 490 ms P-R-T Axes : 31 266 65 degrees QTcB Int : 517 ms Atrial-sensed ventricular-paced rhythm Biventricular pacemaker detected Abnormal ECG When compared with ECG of 29-Oct-2024 08:42, Electronic ventricular pacemaker has replaced Sinus rhythm Confirmed by Saud Davies ([id number]) on 06/24/2025 10:05:01 AM Referred By: Trevor Hill Confirmed By: Saud Davies
[2025-06-24 10:41] VITALS: BP 98/73; PULSE 65; TEMP 98.4; O2SAT 94
== END 2025-06-24 11:58 | disposition home or self-care (01) ==
LOC: 2E 11:53 → EP 11:53
PROC: EPB.ICD (2025-06-23 13:00)